=== PATIENT | male | born 1960 | race Caucasian/White ===

== ENCOUNTER 2016-12-02 08:33 | Day surgery (SDC) | payer OTHER ==
[~2016-12-02] VITALS: Ht 165.1 cm; Wt 88.5 kg
[~2016-12-02 08:33] MED LIST: ALLEGRA60 MG PO; ALLOPURINOL300 MG PO; AMLODIPINE BESY10 MG PO; GABAPENTIN300 MG PO; GEMFIBROZIL600 MG PO; GLIPIZIDE XL5 MG PO; HYDROCHLOROTHIA25 MG PO; LOVASTATIN20 MG PO; LYRICA100 MG PO; MELOXICAM15 MG PO; METFORMIN HCL1000 MG PO; METFORMIN HCL500 MG PO; OMEPRAZOLE20 MG PO; ROXICODONE5 MG PO; TRAMADOL HCL50 MG PO
[2016-12-02 09:05] LABS: POINT-OF-CARE METER ID UU14174212
[2016-12-02 10:25] LABS: ANION GAP 9 MEQ/L (2-14); CHLORIDE 107 MEQ/L (99-109); GFR ESTIMATE (CALCULATED) > 59 mL/min/; GLUCOSE 115 mg/dL (70-99); POTASSIUM 4.1 MEQ/L (3.7-5.4); SAMPLE HEMOLYSIS CHECK 0; SAMPLE ICTERIC CHECK 0; SAMPLE LIPEMIA CHECK 0; SODIUM 142 MEQ/L (136-147); UREA NITROGEN (BUN) 18 mg/dL (9-23)
== END 2016-12-02 11:20 | disposition home or self-care (01) ==
LOC: PAIN 08:33 → SDC 09:15 → PAIN 09:15
PROVIDERS: Anesthesiology Pain Medicine
DX: M47.816 Spondylosis without myelopathy or radiculopathy, lumbar region (principal); M54.5 Low back pain; G89.29 Other chronic pain; M51.36 Other intervertebral disc degeneration, lumbar region; M51.26 Other intervertebral disc displacement, lumbar region; M48.061 Spinal stenosis, lumbar region without neurogenic claudication; E11.40 Type 2 diabetes mellitus with diabetic neuropathy, unspecified; I10 Essential (primary) hypertension; K21.9 Gastro-esophageal reflux disease without esophagitis; E78.5 Hyperlipidemia, unspecified; Z87.891 Personal history of nicotine dependence; Z79.84 Long term (current) use of oral hypoglycemic drugs
CPT/HCPCS: 80048; 82948; 93005; J1030; J2250; J3010; S0020

== ENCOUNTER 2017-02-23 06:50 | Day surgery (SDC) | payer OTHER ==
[~2017-02-23] VITALS: Ht 165.1 cm; Wt 88.5 kg
[~2017-02-23 06:50] MED LIST changes: +GLUCOPHAGE1000 MG PO; -METFORMIN HCL500 MG PO; +ZANAFLEX2 M1 PO
== END 2017-02-23 08:45 | disposition home or self-care (01) ==
LOC: PAIN 06:50 → SDC 07:30 → PAIN 08:45
PROVIDERS: Anesthesiology Pain Medicine
DX: M47.816 Spondylosis without myelopathy or radiculopathy, lumbar region (principal); M54.5 Low back pain; G89.29 Other chronic pain; M51.36 Other intervertebral disc degeneration, lumbar region; M48.061 Spinal stenosis, lumbar region without neurogenic claudication; E11.40 Type 2 diabetes mellitus with diabetic neuropathy, unspecified; I10 Essential (primary) hypertension; E78.5 Hyperlipidemia, unspecified; R00.1 Bradycardia, unspecified; Z87.891 Personal history of nicotine dependence; Z79.84 Long term (current) use of oral hypoglycemic drugs; Z79.891 Long term (current) use of opiate analgesic
CPT/HCPCS: 82948; J1030; J2250; J3010; S0020

== ENCOUNTER 2017-03-26 10:56 | Day surgery (SDC) | payer OTHER ==
[~2017-03-26] VITALS: Ht 165.1 cm; Wt 88.5 kg
== END 2017-03-26 12:35 | disposition home or self-care (01) ==
LOC: PAIN 10:56
PROVIDERS: Anesthesiology Pain Medicine
DX: M47.816 Spondylosis without myelopathy or radiculopathy, lumbar region (principal); M51.36 Other intervertebral disc degeneration, lumbar region; M48.061 Spinal stenosis, lumbar region without neurogenic claudication; I10 Essential (primary) hypertension; E11.40 Type 2 diabetes mellitus with diabetic neuropathy, unspecified; G89.29 Other chronic pain; K21.9 Gastro-esophageal reflux disease without esophagitis; Z87.891 Personal history of nicotine dependence; Z79.84 Long term (current) use of oral hypoglycemic drugs; Z79.891 Long term (current) use of opiate analgesic
CPT/HCPCS: 82948; J1030; J2250; J3010; S0020